=== PATIENT | female | born 1975 ===

== ENCOUNTER 2016-10-11 23:27 | Emergency (ER) | payer MEDICAID ==
[2016-10-11 23:38] VITALS: BP 142/93; PULSE 72; RESP 16; TEMP 98.1; O2SAT 100
[2016-10-12 00:20] LABS: RBC URINE 2 /hpf (0-3); URINE BACTERIA RARE (<OCC); URINE BILIRUBIN NEGATIVE (NEGATIVE); URINE BLOOD MODERATE (NEGATIVE); URINE COLOR COLORLESS (YELLOW); URINE GLUCOSE (UA) NEG (Normal); URINE KETONE NEGATIVE (NEGATIVE); URINE LEUKOCYTE ESTERASE NEG Leu/uL (Negative); URINE PROTEIN NEGATIVE (NEGATIVE); URINE UROBILINOGEN 0.2-1.0 mg/dL (0.2-1.0); WBC URINE 1 /hpf (0-5)
[2016-10-12 00:33] LABS: BASO # 0.1 K/uL (0.0-0.2); BASO % 0.9 % (0.0-2.0); EOS # 0.3 K/uL (0.0-0.7); EOS % 3.9 % (0.0-4.0); HEMATOCRIT 42.1 % (34.0-47.0); LYMPH # 1.7 K/uL (1.0-4.3); LYMPH % 25.2 % (20.0-40.0); MEAN CELL VOLUME 93.5 fl (81.0-99.0); MEAN CORPUSCULAR HEMOGLOBIN 30.8 pg (27.0-31.0); MEAN CORPUSCULAR HGB CONC 32.9 g/dL (33.0-37.0); MEAN PLATELET VOLUME 8.6 fl (7.2-11.7); MONO # 0.6 K/uL (0.0-0.8); NRBC % 0.1 % (0.0-0.0); RED CELL DISTRIBUTION WIDTH 12.6 % (11.5-14.5); WHITE BLOOD COUNT 6.6 K/uL (4.8-10.8)
[2016-10-12] MEDS ORDERED: Sodium Chloride 0.9% 1,000 ML IV STA (00:36)
--- NOTE | 2016-10-12 00:36 | ED PDOC ---
HPI: Chest Pain Time Seen by Provider: 10/11/16 23:51 Chief Complaint (Nursing): Chest Pain Chief Complaint (Provider): chest pain History Per: Patient History/Exam Limitations: no limitations Onset/Duration Of Symptoms: Hrs (2), Waxing/Waning Quality: "Pain" Exacerbating Factors: Turning, Movement Additional History Per: Patient Additional Complaint(s): 41 y/o female history of gastritis, hypertension presents for eval of intermittent chest pain x 2 hours. Patient states she has been lifting weights in arms/chest this week, unknown if related. Denies fever, cough, congestion, shortness of breath, palpitations, recent travel, leg pain/swelling. Patient also notes nonbloody diarrhea x 2 weeks with associated cramping. Patient states any time she eats something she has cramps and will have a loose bowel movement. Patient notes symptoms are worsened with dairy. Denies fever, nausea/vomiting, recent travel, sick contacts. Past Medical History Reviewed: Historical Data, Nursing Documentation, Vital Signs Vital Signs: Last Vital Signs Temp 98.1 F 10/11/16 23:35 Pulse 72 10/11/16 23:35 Resp 16 10/11/16 23:35 BP 142/93 H 10/11/16 23:35 Pulse Ox 100 10/12/16 00:36 - Medical History PMH: Gastritis, HTN - Surgical History Surgical History: No Surg Hx - Family History Family History: States: Unknown Family Hx - Living Arrangements Living Arrangements: With Family - Social History Current smoker - smoking cessation education provided: No Alcohol: None Drugs: Denies - Immunization History Hx Influenza Vaccination: Yes Hx Pneumococcal Vaccination: No - Home Medications Home Medications: Ambulatory Orders Medication Instructions Recorded Hydrochlorothiazide 12.5 mg PO DAILY 12/09/14 Omeprazole 40 mg PO DAILY 12/09/14 Sucralfate [Carafate] 1 tab PO QID #50 tab 12/09/14 - Allergies Allergies/Adverse Reactions: Allergies Allergy/AdvReac Type Severity Reaction Status Date / Time ibuprofen Allergy RASH Verified 10/11/16 23:35 Review of Systems ROS Statement: Except As Marked, All Systems Reviewed And Found Negative Cardiovascular: Positive for: Chest Pain Gastrointestinal: Positive for: Diarrhea Physical Exam - Reviewed Nursing Documentation Reviewed: Yes Vital Signs Reviewed: Yes - Physical Exam Appears: Positive for: Well, Non-toxic, No Acute Distress Skin: Positive for: Normal Color Eye Exam: Positive for: Normal appearance ENT: Positive for: Normal ENT Inspection Cardiovascular/Chest: Positive for: Regular Rate, Rhythm Respiratory: Positive for: Normal Breath Sounds Gastrointestinal/Abdominal: Positive for: Normal Exam Extremity: Positive for: Normal ROM Neurologic/Psych: Positive for: Alert, Oriented - Laboratory Results Result Diagrams: 10/12/16 00:02 10/12/16 00:02 - ECG ECG: Positive for: Viewed By Me (reviewed by ED attending) ECG Rhythm: Positive for: Sinus Rhythm O2 Sat by Pulse Oximetry: 100 - Progress ED Course And Treament: labs, ekg, chest xray, IV fluids, PO tylenol On re-eval, patient states she is feeling better. Patient educated on findings, discharged with instructions to follow up PMD 2-3 days (patient has appt scheduled for Saturday) Advised Tylenol PRN pain. Diet modification for diarrhea (patient also scheduled to see GI). Return to ED for worsening/concerning symptoms. Disposition - Clinical Impression Clinical Impression: Atypical chest pain, Diarrhea - Patient ED Disposition Is Patient to be Admitted: No Counseled Patient/Family Regarding: Studies Performed, Diagnosis, Need For Followup - Disposition Referrals: Abiola Parker MD [Primary Care Provider] - Disposition: Routine/Home Disposition Time: 02:09 Condition: IMPROVED Instructions: Acute Diarrhea (ED), Noncardiac Chest Pain (ED) Print Language: [place]
[2016-10-12 00:39] LABS: ALB/GLOB RATIO 1.3 (1.0-2.1); ALKALINE PHOSPHATASE 79 U/L (38-126); ALT/SGPT 29 U/L (9-52); AST/SGOT 23 U/L (14-36); BILIRUBIN,TOTAL 0.2 mg/dl (0.2-1.3); BLOOD UREA NITROGEN 14 mg/dl (7-17); CALCIUM 9.1 mg/dL (8.4-10.2); CARBON DIOXIDE 27 mmol/L (22-30); CHLORIDE 104 mmol/L (98-107); GFR AFRICAN-AMERICAN > 60; GLUCOSE,RANDOM 94 mg/dL (65-105); LIPASE 66 U/L (23-300); POTASSIUM 3.9 MMOL/L (3.6-5.0); SODIUM 140 mmol/l (132-148); TOTAL PROTEIN 7.5 G/DL (6.3-8.2)
--- NOTE | 2016-10-12 09:27 | RAD ---
HISTORY: chest pain COMPARISON: No prior. TECHNIQUE: Chest PA and lateral FINDINGS: LUNGS: No active pulmonary disease. PLEURA: No significant pleural effusion identified. No pneumothorax apparent. CARDIOVASCULAR: Normal. OSSEOUS STRUCTURES: No significant abnormalities. VISUALIZED UPPER ABDOMEN: Normal. OTHER FINDINGS: None. IMPRESSION: No active disease.
== END 2016-10-12 02:42 | disposition home or self-care (01) ==
LOC: H.ER 23:27
DX: R07.89 Other chest pain (principal); R19.7 Diarrhea, unspecified

== ENCOUNTER 2016-12-11 08:54 | Day surgery (SDC) | payer MEDICAID ==
[2016-12-11] MEDS ORDERED: Lactated Ringer's 500 ML IV ONE (09:58)
[2016-12-11 10:50] VITALS: TEMP 96.9
[2016-12-11] MEDS ORDERED: Benzocaine/Butamben/Tetracai 14-2-2% TOP Spray TOP ONE (12:27)
[2016-12-11] MEDS ORDERED: Propofol 10 mg/ml Inj (20 ML) ONE (12:28)
[2016-12-11 13:00] VITALS: O2SAT 100
[2016-12-11 13:10] VITALS: BP 104/57; PULSE 76; RESP 19
== END 2016-12-11 13:27 | disposition home or self-care (01) ==
LOC: H.ENDO 08:54
PROVIDERS: ATTEND Internal Medicine Gastroenterology
DX: R10.13 Epigastric pain (principal); I10 Essential (primary) hypertension; K31.9 Disease of stomach and duodenum, unspecified

== ENCOUNTER 2017-08-30 02:58 | Emergency (ER) | payer MEDICAID ==
[2017-08-30] MEDS ORDERED: Sodium Chloride 0.9% 1,000 ML IV STA (03:53)
--- NOTE | 2017-08-30 04:00 | ED PDOC ---
HPI:Nausea, Vomiting, Diarrhea Time Seen by Provider: 08/30/17 03:31 Chief Complaint (Nursing): GI Problem Chief Complaint (Provider): vomiting History Per: Patient History/Exam Limitations: no limitations Onset/Duration Of Symptoms: Hrs Current Symptoms Are (Timing): Still Present Additional Complaint(s): 42 y/o female presents for evaluation of vomiting x 2 hours. Patient states tonight is the first time she drank whiskey and does not think it settled well with her. Denies fever, chest pain, shortness of breath, palpitations, abdominal pain, changes in bowel movements. Past Medical History Reviewed: Historical Data, Nursing Documentation, Vital Signs Vital Signs: Last Vital Signs Temp 97.9 F 08/30/17 03:24 Pulse 83 08/30/17 03:24 Resp 16 08/30/17 03:24 BP Pulse Ox 96 08/30/17 03:24 - Medical History PMH: Gastritis, HTN Denies: Chronic Kidney Disease - Surgical History Surgical History: Other surgeries: abdominoplasty, blepharoplasty - Family History Family History: States: Unknown Family Hx - Immunization History Hx Influenza Vaccination: Yes Hx Pneumococcal Vaccination: No - Home Medications Home Medications: Ambulatory Orders Medication Instructions Recorded Hydrochlorothiazide [Microzide] 12.5 mg PO DAILY 12/11/16 Ondansetron ODT [Zofran ODT] 4 mg PO Q8 PRN #10 odt 08/30/17 - Allergies Allergies/Adverse Reactions: Allergies Allergy/AdvReac Type Severity Reaction Status Date / Time ibuprofen Allergy RASH Verified 10/11/16 23:35 Review of Systems ROS Statement: Except As Marked, All Systems Reviewed And Found Negative Gastrointestinal: Positive for: Nausea, Vomiting Physical Exam - Reviewed Nursing Documentation Reviewed: Yes Vital Signs Reviewed: Yes - Physical Exam Appears: Positive for: Well, Non-toxic, No Acute Distress Head Exam: Positive for: ATRAUMATIC, NORMAL INSPECTION, NORMOCEPHALIC Skin: Positive for: Normal Color Eye Exam: Positive for: Normal appearance ENT: Positive for: Normal ENT Inspection Cardiovascular/Chest: Positive for: Regular Rate, Rhythm Respiratory: Positive for: Normal Breath Sounds Gastrointestinal/Abdominal: Positive for: Normal Exam Back: Positive for: Normal Inspection Extremity: Positive for: Normal ROM Neurologic/Psych: Positive for: Alert, Oriented - Laboratory Results Result Diagrams: 08/30/17 04:40 08/30/17 04:40 - ECG O2 Sat by Pulse Oximetry: 96 - Progress ED Course And Treament: labs, IV fluids, IV pepcid, ODT zofran On re-eval, patient tolerating PO Patient awake, alert, oriented x3. Patient educated on findings, discharged with rx zofran Advised follow up PMD 2-3 days. Return precautions given. Disposition - Clinical Impression Clinical Impression: Alcohol intolerance - Patient ED Disposition Is Patient to be Admitted: No Counseled Patient/Family Regarding: Studies Performed, Diagnosis, Need For Followup, Rx Given - Disposition Referrals: Jesus Pham DO [Primary Care Provider] - Disposition: Routine/Home Disposition Time: 06:00 Condition: IMPROVED Prescriptions: Ondansetron ODT [Zofran ODT] 4 mg PO Q8 PRN #10 odt PRN Reason: Nausea/Vomiting Instructions: Nausea and Vomiting, Adult Forms: [facility] (Armenian)
[2017-08-30 04:08] VITALS: RESP 18; TEMP 98.7
[2017-08-30 04:52] LABS: ALB/GLOB RATIO 1.2 (1.0-2.1); ALBUMIN 4.2 g/dL (3.5-5.0); ALT/SGPT 40 U/L (9-52); AST/SGOT 35 U/L (14-36); BASO % 0.8 % (0.0-2.0); BLOOD UREA NITROGEN 13 mg/dl (7-17); EOS % 0.5 % (0.0-4.0); GFR AFRICAN-AMERICAN > 60; GFR NON-AFRICAN AMERICAN > 60; HEMOGLOBIN 13.8 g/dL (12.0-16.0); LYMPH % 17.1 % (20.0-40.0); MEAN CELL VOLUME 91.2 fl (81.0-99.0); MEAN CORPUSCULAR HEMOGLOBIN 31.1 pg (27.0-31.0); MEAN CORPUSCULAR HGB CONC 34.1 g/dL (33.0-37.0); MONO # 0.4 K/uL (0.0-0.8); MONO % 7.1 % (0.0-10.0); NEUT # 4.4 K/uL (1.8-7.0); NEUT % 74.5 % (50.0-75.0); NRBC % 0.1 % (0.0-0.0); RBC 4.46 Mil/uL (3.80-5.20); RED CELL DISTRIBUTION WIDTH 12.8 % (11.5-14.5); WHITE BLOOD COUNT 5.9 K/uL (4.8-10.8)
[2017-08-30 07:19] VITALS: BP 94/48; PULSE 78
[2017-09-02 20:39] VITALS: O2SAT 96
== END 2017-08-30 06:32 | disposition home or self-care (01) ==
LOC: H.ER 02:58
DX: F10.10 Alcohol abuse, uncomplicated (principal); R11.2 Nausea with vomiting, unspecified; I10 Essential (primary) hypertension
CPT/HCPCS: 80053; 80320; 82948; 83690; 85025; 96361; 96374; 99284; J7040

== ENCOUNTER 2017-12-17 10:05 | Emergency (ER) | payer MEDICAID ==
--- NOTE | 2017-12-17 10:31 | ED PDOC ---
HPI: Female Pain Time Seen by Provider: 12/17/17 10:30 Chief Complaint (Nursing): Female Genitourinary Chief Complaint (Provider): pelvic pain, vaginal bleeding History Per: Patient Additional Complaint(s): 42-year-old female presents with abnormal vaginal bleeding and pelvic pain 2 days. Patient states that she has her normal period 2 weeks ago and started to bleed again today. Patient states that her cycle has been irregular for the past few months. Patient denies any fever or chills. No dysuria or vaginal discharge. PMD: [facility] [place] Past Medical History Reviewed: Historical Data, Nursing Documentation, Vital Signs Vital Signs: Last Vital Signs Temp 98.7 F 12/17/17 10:20 Pulse 79 12/17/17 10:20 Resp 18 12/17/17 10:20 BP 134/74 12/17/17 10:20 Pulse Ox 100 12/17/17 10:20 - Medical History PMH: Gastritis, HTN - Surgical History Surgical History: Other surgeries: tubal ligation - Family History Family History: States: No Known Family Hx - Living Arrangements Living Arrangements: With Family - Social History Current smoker - smoking cessation education provided: Yes ("sometimes") Alcohol: None Drugs: Denies - Home Medications Home Medications: Ambulatory Orders Medication Instructions Recorded Hydrochlorothiazide [Microzide] 12.5 mg PO DAILY 12/11/16 Ondansetron ODT [Zofran ODT] 4 mg PO Q8 PRN #10 odt 08/30/17 Nitrofurantoin Macrocrystals 100 mg PO BID #14 cap 12/17/17 [Macrobid] - Allergies Allergies/Adverse Reactions: Allergies Allergy/AdvReac Type Severity Reaction Status Date / Time ibuprofen Allergy RASH Verified 10/11/16 23:35 Review of Systems ROS Statement: Except As Marked, All Systems Reviewed And Found Negative Constitutional: Negative for: Fever, Chills Cardiovascular: Negative for: Chest Pain Respiratory: Negative for: Cough Gastrointestinal: Positive for: Nausea, Abdominal Pain. Negative for: Vomiting Genitourinary Female: Positive for: Vaginal Bleeding, Pelvic Pain. Negative for : Dysuria, Frequency, Vaginal Discharge Neurological: Negative for: Headache, Dizziness Physical Exam - Reviewed Nursing Documentation Reviewed: Yes Vital Signs Reviewed: Yes - Physical Exam Appears: Positive for: Well, Non-toxic, No Acute Distress Skin: Positive for: Normal Color. Negative for: Rash Eye Exam: Positive for: Normal appearance Cardiovascular/Chest: Positive for: Regular Rate, Rhythm Respiratory: Positive for: Normal Breath Sounds. Negative for: Wheezing, Respiratory Distress Gastrointestinal/Abdominal: Positive for: Soft. Negative for: Tenderness, Distended, Guarding, Rebound Back: Negative for: L CVA Tenderness, R CVA Tenderness Extremity: Positive for: Normal ROM. Negative for: Pedal Edema Neurologic/Psych: Positive for: Alert, Oriented - Laboratory Results Result Diagrams: 12/17/17 11:12 12/17/17 11:12 Urine POC: Negative - ECG O2 Sat by Pulse Oximetry: 100 Pulse Ox Interpretation: Normal - Other Rad Pelvic US X-Ray: Read By Radiologist X-Ray Interpretation: no acute finding Medical Decision Making Medical Decision Makin-year-old female with abnormal vaginal bleeding Plan: CBC CMP PT/PTT TV US IVF PO tylenol IV zofran Patient feels better after medications given. She is aware of all diagnostic testing results, all questions answered. Prescription for Macrobid provided. Advised Tylenol for pain, fluids and rest. Patient was referred to [facility] for follow-up. Disposition - Clinical Impression Clinical Impression: Urinary tract infection, Abnormal uterine and vaginal bleeding, unspecified - Patient ED Disposition Is Patient to be Admitted: No Counseled Patient/Family Regarding: Studies Performed, Diagnosis, Need For Followup, Rx Given - Disposition [facility]errals[facility] [Outside] Disposition: Routine/Home Disposition Time: 12:40 Condition: STABLE Additional Instructions: Take Tylenol for pain as needed. Take prescription meds as directed. Follow-up with [facility] in 2-3 days. Prescriptions: Nitrofurantoin Macrocrystals [Macrobid] 100 mg PO BID #14 cap Instructions: Urinary Tract Infection, Adult (DC), Dysfunctional Uterine Bleeding (ED) Forms: [employer] (Martiniquais) Results - Lab Results Lab Results: 12/17/17 12/17/17 12/17/17 11:12 11:12 11:12 WBC 7.0 RBC 4.86 Hgb 15.1 Hct 44.5 MCV 91.5 MCH 31.1 H MCHC 34.0 RDW 14.4 Plt Count 251 MPV 8.8 Neut % (Auto) 73.8 Lymph % (Auto) 15.8 L [place] % (Auto) 7.8 Eos % (Auto) 1.9 Baso % (Auto) 0.7 Neut # (Auto) 5.1 Lymph # (Auto) 1.1 [place] # (Auto) 0.5 Eos # (Auto) 0.1 Baso # (Auto) 0.1 PT 11.0 INR 1.0 APTT 32.2 Sodium 141 Potassium 4.7 Chloride 107 Carbon Dioxide 30 Anion Gap 9 L BUN 7 Creatinine 0.7 Est GFR ( Amer) > 60 Est GFR (Non-Af Amer) > 60 Random Glucose 94 Calcium 9.6 Total Bilirubin 0.6 AST 29 ALT 22 Alkaline Phosphatase 73 Total Protein 7.3 Albumin 4.0 Globulin 3.4 Albumin/Globulin Ratio 1.2 Urine Color Urine Clarity Urine pH Ur Specific Reubens Urine Protein Urine Glucose (UA) Urine Ketones Urine Blood Urine Nitrate Urine Bilirubin Urine Urobilinogen Ur Leukocyte Esterase Urine RBC (Auto) Urine Microscopic WBC Urine Bacteria 12/17/17 11:07 WBC RBC Hgb Hct MCV MCH MCHC RDW Plt Count MPV Neut % (Auto) Lymph % (Auto) [place] % (Auto) Eos % (Auto) Baso % (Auto) Neut # (Auto) Lymph # (Auto) [place] # (Auto) Eos # (Auto) Baso # (Auto) PT INR APTT Sodium Potassium Chloride Carbon Dioxide Anion Gap BUN Creatinine Est GFR ( Amer) Est GFR (Non-Af Amer) Random Glucose Calcium Total Bilirubin AST ALT Alkaline Phosphatase Total Protein Albumin Globulin Albumin/Globulin Ratio Urine Color Red Urine Clarity Turbid Urine pH 8.0 Ur Specific Reubens 1.008 Urine Protein 30 Urine Glucose (UA) Neg Urine Ketones Negative Urine Blood Large Urine Nitrate Negative Urine Bilirubin Negative Urine Urobilinogen 0.2-1.0 Ur Leukocyte Esterase Neg Urine RBC (Auto) 7894 H Urine Microscopic WBC 131 H Urine Bacteria Rare
[2017-12-17] MEDS ORDERED: Sodium Chloride 0.9% 1,000 ML IV STA (10:53)
[2017-12-17 11:34] LABS: BASO # 0.1 K/uL (0.0-0.2); BASO % 0.7 % (0.0-2.0); EOS # 0.1 K/uL (0.0-0.7); EOS % 1.9 % (0.0-4.0); HEMOGLOBIN 15.1 g/dL (12.0-16.0); LYMPH # 1.1 K/uL (1.0-4.3); LYMPH % 15.8 % (20.0-40.0); MEAN CELL VOLUME 91.5 fl (81.0-99.0); MEAN CORPUSCULAR HEMOGLOBIN 31.1 pg (27.0-31.0); MEAN PLATELET VOLUME 8.8 fl (7.2-11.7); MONO # 0.5 K/uL (0.0-0.8); MONO % 7.8 % (0.0-10.0); NEUT # 5.1 K/uL (1.8-7.0); NEUT % 73.8 % (50.0-75.0); RBC 4.86 Mil/uL (3.80-5.20); RED CELL DISTRIBUTION WIDTH 14.4 % (11.5-14.5)
[2017-12-17 11:42] LABS: PARTIAL THROMBOPLASTIN TIME 32.2 Seconds (25.6-37.1)
[2017-12-17 11:51] LABS: URINE BACTERIA RARE (<OCC); URINE BILIRUBIN NEGATIVE (NEGATIVE); URINE BLOOD LARGE (NEGATIVE); URINE GLUCOSE (UA) NEG (Normal); URINE LEUKOCYTE ESTERASE NEG Leu/uL (Negative); URINE PROTEIN 30 mg/dL (NEGATIVE); URINE UROBILINOGEN 0.2-1.0 mg/dL (0.2-1.0)
[2017-12-17 11:59] LABS: ALB/GLOB RATIO 1.2 (1.0-2.1); ALT/SGPT 22 U/L (9-52); AST/SGOT 29 U/L (14-36); BLOOD UREA NITROGEN 7 mg/dl (7-17); CALCIUM 9.6 mg/dL (8.4-10.2); GFR NON-AFRICAN AMERICAN > 60
[2017-12-17 11:59] LABS: URINE CLARITY Turbid (Clear); URINE COLOR RED (YELLOW)
--- NOTE | 2017-12-17 13:06 | US ---
Date of service: 12/17/2017 HISTORY: pelvic pain, abnormal bleeding COMPARISON: None available. TECHNIQUE: Transvaginal FINDINGS: UTERUS: Measures 8.6 x 5.6 x 3.7 cm. Normal in size and appearance. No fibroid or other mass lesion seen. ENDOMETRIUM: Measures 6 mm in diameter. Unremarkable. CERVIX: No cervical abnormality identified. RIGHT OVARY: Measures 2.5 x 2.3 x 1.5 cm. No solid mass. Normal flow. 1.6 cm physiologic cyst. LEFT OVARY: Measures 4.2 x 2.3 x 1.6 cm. No solid mass. Normal flow. 2.0 cm physiologic cyst. FREE FLUID: No significant free fluid noted. OTHER FINDINGS: None. IMPRESSION: Unremarkable pelvic ultrasound.
[2017-12-17 13:39] VITALS: BP 106/68; PULSE 56; RESP 16; TEMP 98.3; O2SAT 99
== END 2017-12-17 13:38 | disposition home or self-care (01) ==
LOC: H.ER 10:05
DX: N39.0 Urinary tract infection, site not specified (principal); N93.9 Abnormal uterine and vaginal bleeding, unspecified; I10 Essential (primary) hypertension
CPT/HCPCS: 76830; 80053; 81003; 81025; 85025; 85610; 85730; 96360; 99285; J2405; J7030

== ENCOUNTER 2018-01-27 15:05 | Emergency (ER) | payer MEDICAID ==
[2018-01-27 15:56] VITALS: BP 133/83; PULSE 77; RESP 20; TEMP 97.9; O2SAT 100
--- NOTE | 2018-01-27 16:44 | ED PDOC ---
HPI: General Adult Chief Complaint (Provider): vomiting/leg discomfort. History Per: Patient (42 y/o female recent varicose vein stripping 2 weeks ago here for evaluation of bilateral leg numbness/heaviness noted after patient became anxious of left leg feeling numb. Patient states she has a h/o anxiety but does not feel this is related to symptoms of vomiting that accompanied leg numbness. States she took anti hypertensive today (prescribed to [place] 10 years ago) but has been told by pmd in [facility] that she does not have hypertension and does not need medication.) <Chance Smith - Last Filed: 01/27/18 19:50> <Marilee Ledezma - Last Filed: 01/28/18 15:09> Time Seen by Provider: 01/27/18 16:42 Chief Complaint (Nursing): Lower Extremity Problem/Injury Past Medical History Reviewed: Historical Data, Nursing Documentation, Vital Signs Vital Signs: Last Vital Signs Temp 97.9 F 01/27/18 15:54 Pulse 77 01/27/18 15:54 Resp 20 01/27/18 15:54 BP 133/83 01/27/18 15:54 Pulse Ox 100 01/27/18 15:54 - Medical History PMH: Gastritis, HTN Denies: Chronic Kidney Disease - Surgical History Surgical History: - Family History Family History: States: Unknown Family Hx - Immunization History Hx Influenza Vaccination: Yes Hx Pneumococcal Vaccination: No <Chance Smith - Last Filed: 01/27/18 19:50> Vital Signs: Last Vital Signs Temp 97.9 F 01/27/18 15:54 Pulse 77 01/27/18 15:54 Resp 20 01/27/18 15:54 BP 133/83 01/27/18 15:54 Pulse Ox 100 01/27/18 19:50 <Marilee Ledezma - Last Filed: 01/28/18 15:09> - Home Medications Home Medications: Ambulatory Orders Medication Instructions Recorded Hydrochlorothiazide [Microzide] 12.5 mg PO DAILY 12/11/16 Ondansetron ODT [Zofran ODT] 4 mg PO Q8 PRN #10 odt 08/30/17 Nitrofurantoin Macrocrystals 100 mg PO BID #14 cap 12/17/17 [Macrobid] - Allergies Allergies/Adverse Reactions: Allergies Allergy/AdvReac Type Severity Reaction Status Date / Time ibuprofen Allergy RASH Verified 01/27/18 15:54 Review of Systems ROS Statement: Except As Marked, All Systems Reviewed And Found Negative <Chance Smith - Last Filed: 01/27/18 19:50> Physical Exam - Reviewed Nursing Documentation Reviewed: Yes Vital Signs Reviewed: Yes - Physical Exam Appears: Positive for: Well, Non-toxic, No Acute Distress Head Exam: Positive for: ATRAUMATIC, NORMAL INSPECTION, NORMOCEPHALIC Skin: Positive for: Normal Color, Warm, DRY Eye Exam: Positive for: EOMI, Normal appearance, PERRL ENT: Positive for: Normal ENT Inspection Neck: Positive for: Normal, Painless ROM Cardiovascular/Chest: Positive for: Regular Rate, Rhythm Respiratory: Positive for: CNT, Normal Breath Sounds Gastrointestinal/Abdominal: Positive for: Normal Exam, Soft Back: Positive for: Normal Inspection Extremity: Positive for: Normal ROM Neurologic/Psych: Positive for: Alert, Oriented <Chance Smith - Last Filed: 01/27/18 19:50> - Laboratory Results Result Diagrams: 01/27/18 17:19 01/27/18 17:19 - ECG O2 Sat by Pulse Oximetry: 100 - Progress ED Course And Treament: ativan 0.5 mg iv x 1 dose DUPLEX BILATERAL LEG: NEG <Chance Smiht - Last Filed: 01/27/18 19:50> - Laboratory Results Result Diagrams: 01/27/18 17:19 01/27/18 17:19 <Marilee Ledezma - Last Filed: 01/28/18 15:09> Disposition - Patient ED Disposition Is Patient to be Admitted: No - Disposition Disposition: Routine/Home Disposition Time: 19:50 <Chance Smith - Last Filed: 01/27/18 19:50> <Marilee Ledezma - Last Filed: 01/28/18 15:09> - Clinical Impression Clinical Impression: Leg pain, bilateral - Disposition Referrals: [facility] [Outside] Condition: FAIR Instructions: Anxiety, Adult (DC), Muscle and Bone Pain (DC) - PA / RETAIL INTERIOR DESIGNER / Resident Statement MD/DO has reviewed & agrees with the documentation as recorded. <Marilee Ledezma - Last Filed: 01/28/18 15:09>
[2018-01-27 17:35] LABS: ALB/GLOB RATIO 1.1 (1.0-2.1); ALBUMIN 4.2 g/dL (3.5-5.0); ALT/SGPT 27 U/L (9-52); AST/SGOT 28 U/L (14-36); BLOOD UREA NITROGEN 11 mg/dl (7-17); CALCIUM 9.7 mg/dL (8.4-10.2); GFR NON-AFRICAN AMERICAN > 60
[2018-01-27 17:36] LABS: BASO # 0.1 K/uL (0.0-0.2); BASO % 1.1 % (0.0-2.0); EOS # 0.2 K/uL (0.0-0.7); EOS % 2.5 % (0.0-4.0); HEMOGLOBIN 14.7 g/dL (12.0-16.0); LYMPH # 1.2 K/uL (1.0-4.3); MEAN CELL VOLUME 92.3 fl (81.0-99.0); MEAN CORPUSCULAR HEMOGLOBIN 31.3 pg (27.0-31.0); MEAN PLATELET VOLUME 8.8 fl (7.2-11.7); MONO # 0.4 K/uL (0.0-0.8); MONO % 5.8 % (0.0-10.0); NEUT # 5.7 K/uL (1.8-7.0); NEUT % 74.6 % (50.0-75.0); NRBC % 0.1 % (0.0-0.0); RBC 4.7 Mil/uL (3.80-5.20); RED CELL DISTRIBUTION WIDTH 13.1 % (11.5-14.5); WHITE BLOOD COUNT 7.6 K/uL (4.8-10.8)
--- NOTE | 2018-01-28 10:30 | US ---
Date of service: Paul 01/27/2018 PROCEDURE: Bilateral lower extremity venous duplex Doppler. HISTORY: r/o dvt COMPARISON: None available. TECHNIQUE: Bilateral common femoral, superficial femoral, popliteal and posterior tibial veins were evaluated. Flow was assessed with color Doppler, compressibility, assessment of phasic flow and augmentation response. FINDINGS: COMMON FEMORAL VEIN: Right CFV: Unremarkable. Left CFV: Unremarkable. SUPERFICIAL FEMORAL VEIN: Right SFV: Unremarkable. Left SFV: Unremarkable. POPLITEAL VEIN: Right Popliteal: Unremarkable. Left Popliteal: Unremarkable. POSTERIOR TIBIAL VEIN: Right PTV: Unremarkable. Left PTV: Unremarkable. OTHER FINDINGS: None. IMPRESSION: No evidence of deep venous thrombosis. Concordant results (preliminary interpretation) provided by [employer] [facility]. Procedure Completed: 19:14 Preliminary Report: Dictated and Authenticated: 19:47 Final Interpretation: 10:29. January 28, 2018
== END 2018-01-27 20:22 | disposition home or self-care (01) ==
LOC: H.ER 15:05
DX: M79.606 Pain in leg, unspecified (principal); I10 Essential (primary) hypertension
CPT/HCPCS: 80053; 81025; 83735; 85025; 93970; 96374; 99284; J2060

== ENCOUNTER 2018-06-02 17:19 | Emergency (ER) | payer SELFPAY ==
[2018-06-02 18:29] VITALS: RESP 18
--- NOTE | 2018-06-02 20:56 | ED PDOC ---
HPI: Psych/Substance Abuse Time Seen by Provider: 06/02/18 18:51 Chief Complaint (Nursing): Anxiety Chief Complaint (Provider): anxiety History Per: Patient History/Exam Limitations: no limitations Onset/Duration Of Symptoms: Hrs (today) Current Symptoms Are (Timing): Still Present Associated Symptoms: Anxiety. denies: Suicidal Thoughts, Suicidal Plan Additional Complaint(s): Palmira Monzon is a 42 year old female, with a past medical history of anxiety and depression, who presents to the emergency department complaining of a panic attack. Patient states she was previously on Alprazolam which she weaned herself off slowly over the years due to concern for addiction. She has controlled anxiety by going to the gym, with natural remedies and taking deep breaths. However, over the past few weeks she has started to become increasingly anxious, even watching TV shows or news she receives from her family make her nervous. Today she had a small argument with her son and became nervous, she was able to go on but when she got home she felt dizzy and had a panic attack with palpitations and trouble breathing which prompted ED visit. She denies any suicidal or homicidal ideation, no auditory or visual hallucinations. No physical complaints at this time. PMD: Bakari Chau,Nelly Pagan Past Medical History Reviewed: Historical Data, Nursing Documentation, Vital Signs Vital Signs: Last Vital Signs Temp 98.2 F 06/02/18 18:24 Pulse 68 06/02/18 18:24 Resp 18 06/02/18 18:24 BP 132/84 06/02/18 18:24 Pulse Ox 99 06/02/18 18:24 - Medical History PMH: Anxiety, Depression, Gastritis, HTN Denies: Chronic Kidney Disease - Surgical History Surgical History: - Family History Family History: States: Unknown Family Hx - Social History Current smoker - smoking cessation education provided: Yes (Current some days smoker) Alcohol: Social Drugs: Denies - Immunization History Hx Influenza Vaccination: Yes Hx Pneumococcal Vaccination: No - Home Medications Home Medications: Ambulatory Orders Medication Instructions Recorded Hydrochlorothiazide [Microzide] 12.5 mg PO DAILY 12/11/16 Ondansetron ODT [Zofran ODT] 4 mg PO Q8 PRN #10 odt 08/30/17 Nitrofurantoin Macrocrystals 100 mg PO BID #14 cap 12/17/17 [Macrobid] - Allergies Allergies/Adverse Reactions: Allergies Allergy/AdvReac Type Severity Reaction Status Date / Time ibuprofen Allergy RASH Verified 01/27/18 15:54 Review of Systems ROS Statement: Except As Marked, All Systems Reviewed And Found Negative Cardiovascular: Positive for: Palpitations Respiratory: Positive for: Shortness of Breath Psych: Positive for: Anxiety. Negative for: Suicidal ideation (or homicidal ideation), Other (auditory or visual hallucinations) Physical Exam - Reviewed Nursing Documentation Reviewed: Yes Vital Signs Reviewed: Yes - Physical Exam Appears: Positive for: No Acute Distress Head Exam: Positive for: ATRAUMATIC, NORMAL INSPECTION, NORMOCEPHALIC Skin: Positive for: Normal Color, Warm, Dry Eye Exam: Positive for: Normal appearance, EOMI, PERRL ENT: Positive for: Normal ENT Inspection Neck: Positive for: Normal, Painless ROM Cardiovascular/Chest: Positive for: Regular Rate, Rhythm. Negative for: Murmur Respiratory: Positive for: Normal Breath Sounds. Negative for: Respiratory Distress Extremity: Positive for: Normal ROM (upper and lower extremities). Negative for: Tenderness, Deformity, Swelling Neurologic/Psych: Positive for: Alert, Oriented, Mood/Affect (appropriate). Negative for: Motor/Sensory Deficits (equal strength bilaterally to upper extremities) - ECG O2 Sat by Pulse Oximetry: 99 (RA) Pulse Ox Interpretation: Normal Medical Decision Making Medical Decision Making: Time: 18:51 Initial Impression: Crisis evaluation Initial Plan: --Reevaluation 21:10 -Patient was given referral with appointment to [facility]. At this time patient requires no further medical treatment in the ED and is medically stable for discharge home. ----- Scribe Attestation: Documented by Catarino Gomes, acting as a scribe for Lacy Stephens PA-C. Provider Scribe Attestation: All medical record entries made by the Scribe were at my direction and personal ly dictated by me. I have reviewed the chart and agree that the record accurately reflects my personal performance of the history, physical exam, medical decision making, and the department course for this patient. I have also personally directed, reviewed, and agree with the discharge instructions and disposition. Disposition - Clinical Impression Clinical Impression: Anxiety attack - Patient ED Disposition Is Patient to be Admitted: No Counseled Patient/Family Regarding: Studies Performed, Diagnosis - Disposition [facility]errals[facility]] Disposition: Routine/Home Disposition Time: 21:10 Condition: STABLE Additional Instructions: F/u with [facility] for further evaluation of increasing anxiety. Return to ER with any progression of symptoms. Instructions: Anxiety, Adult (DC) Forms: [facility] (Welsh) Print Language: KUWAIT[place]
[2018-06-02 21:18] VITALS: BP 136/94; PULSE 64; TEMP 97.7
[2018-06-02 21:24] VITALS: O2SAT 99
== END 2018-06-02 21:40 | disposition home or self-care (01) ==
LOC: H.ER 17:19
DX: F41.9 Anxiety disorder, unspecified (principal)